=== PATIENT | male | born 1985 | race Caucasian/White ===

== ENCOUNTER 2016-05-27 23:42 | Inpatient (IN) | payer OTHER ==
--- NOTE | ~2016-05-27 | HP ---
Unit #: [id number] #: [id number] Patient: DALY ALVARADO [id number] [place] [address] [id number] I MR#: [id number] NAME: DALY ALVARADO. ROOM: 78 Age: 30 Sex: M Admission Date: 05/27/2016 : 1985 Attending Physician: Alex Winkler M.D. Admitting Physician: Alex Winkler M.D. Primary Care Physician: Primary Care Physician No HISTORY AND PHYSICAL HISTORY OF PRESENT ILLNESS Daly is a 30 year old admitted to [facility] because of his polysubstance abuse which includes benzodiazepines and pain pills. PAST MEDICAL HISTORY History of poly-illicit substance abuse. PAST SURGICAL HISTORY Nothing reported. ALLERGIES Ceclor. SOCIAL HISTORY He smokes 1 pack per day. Denies alcohol. Admits to a history of polysubstance abuse. FAMILY HISTORY Medically noncontributory. REVIEW OF SYSTEMS CONSTITUTIONAL: No fever or chills. HEENT: Denies any sore throat, ear pain or runny nose. CARDIOVASCULAR: Denies chest pain, irregular heart rhythm or palpitations. CHEST: Denies shortness of breath or cough. No hemoptysis. GASTROINTESTINAL: Denies nausea, vomiting, diarrhea or chronic constipation. ENDOCRINE: Denies history of increased thirst or urination. No recent significant weight loss or gain. GENITOURINARY: Denies dysuria, frequency, or hematuria. SKIN: Denies any rashes. HEMATOLOGIC: Denies history of increased bleeding or bruising. MUSCULOSKELETAL: Denies any hot, swollen joints. No generalized muscle pain. NEUROLOGIC: Denies problems with vision or speech. No frequent, severe headaches. No numbness, tingling or weakness in any extremities. Denies loss of bladder or bowel control. CURRENT MEDICATIONS Detox protocol. PHYSICAL EXAMINATION GENERAL: Alert, well-nourished, in no apparent distress. Unit #: [id number] #: [id number] Patient: DALY ALVARADO VITAL SIGNS: Blood pressure 110/70, heart rate 80, respirations 16, temperature 98.6. WEIGHT: 146. HEIGHT: 5 feet 9 inches. SKIN: Warm and dry without rash or lesion. HEENT: Normocephalic. TMs not viewed. Oral and nasal passages clear. Conjunctivae clear. PERRLA. EOMs intact. NECK: Supple without lymphadenopathy or thyromegaly. HEART: Regular rate and rhythm without murmur. LUNGS: Clear. ABDOMEN: Soft, nontender. : Not done. EXTREMITIES: No evidence of cyanosis, clubbing or edema. Moves all without focal deficit. NEUROLOGICAL: Grossly within normal limits. Cranial Nerves: II: Visual hubbard are intact. III, IV AND : Extraocular movements are intact. Pupils are equal, round and reactive to light. V: Facial sensation is grossly normal. VII: Facial movements and expression are normal. VIII: Auditory acuity grossly intact. IX, X: Uvula is midline. Phonation is normal. XI: Patient shrugs shoulders and turns head normally. XII: Tongue protrudes in the midline. Sensory and Motor Function: Sensory and motor sensation is grossly normal. Motor: moves all extremities well. Coordination: Gait is normal. Deep Tendon Reflexes: Intact. IMPRESSION Psychiatric admission. RECOMMENDATIONS PSYCHIATRIC: Per psychiatrist. MEDICAL: See no contraindications to participate in facility's activities. MEDICAL PROGNOSIS Good. MEDICAL CONDITION Stable. Dictated by... Heidi Prajapati P.A.-C. for Kervin Davis/crys TD: 05/28/2016 20:25 JOB #: [id number] Unit #: [id number] #: [id number] Patient: DALY ALVARADO HISTORY AND PHYSICAL Page 1 of 1 X Heidi Prajapati HISTORY AND PHYSICAL
--- NOTE | ~2016-05-27 | DS ---
Unit #: [id number] #: [id number] Patient: DALY ALVARADO [id number] [place] [address] [id number] MR#: [id number] NAME: DALY ALVARADO. ROOM: P178 Age: 30 Sex: M Admission Date: 05/27/2016 : 1985 Discharge Date: 05/29/2016 Attending Physician: Alex Winkler M.D. Primary Care Physician: Primary Care Physician No DISCHARGE SUMMARY IDENTIFYING INFORMATION The patient is a 30-year-old white male, admitted to the [facility] unit with a history of abuse of Xanax, Klonopin, and oxycodone. HOSPITAL COURSE The patient was admitted to the [facility] unit and placed on routine detoxification protocol for opioids and benzodiazepines. The patient began to demand treatment with benzodiazepines while not meeting criteria for Ativan and required a brief hold. On 05/28/2016, he was begun on Vistaril 50 mg q.6 hours p.r.n. anxiety. On 05/29/2016, this physician was informed that the patient is wish to leave the hospital. The patient was initially placed on a 72-hour hold, so that he could be evaluated by this physician prior to discharge. At that point, the patient denied suicidal or homicidal ideation and exhibited no signs or symptoms of withdrawal. A brennen discussion of the risks of untreated benzodiazepine withdrawal including the risk of seizures and were undertaken with the patient. He persisted in his wish for discharge and was not felt to meet criteria for further involuntary hospitalization. Discharge was ordered on against medical advice basis. FINAL DIAGNOSES Opioid use disorder, sedative hypnotic use disorder. DISPOSITION ON DISCHARGE No psychotropic medications are prescribed to the patient at the time of discharge. It will be to the discretion of the patient and his outpatient provider whether or not he will continue the following medications; BuSpar 15 mg b.i.d. for anxiety, Zoloft 100 mg once daily for depression, Vistaril 50 mg q.6 hours p.r.n. anxiety, and Wellbutrin SR 100 mg q.a.m. for depression. DISCHARGE INSTRUCTIONS No dietary or physical restrictions were placed upon the patient at the time of discharge. PROGNOSIS Given his lack of investment and maintenance of sobriety, his prognosis would be considered a guarded one and as noted previously his discharge is against medical advice. Dictated by... Unit #: [id number] #: [id number] Patient: DALY ALVARADO M.D. CB/barbara TD: 05/29/2016 23:01 JOB #: [id number] DISCHARGE SUMMARY Page 1 of 1 X Alex Winkler MD X DISCHARGE SUMMARY
--- NOTE | ~2016-05-27 | PA ---
Unit #: [id number] #: [id number] Patient: DALY ALVARADO [id number] [place] [address] [id number] I MR#: [id number] NAME: DALY ALVARADO. ROOM: [facility] Age: 30 Sex: M Admission Date: 05/27/2016 : 1985 Date of Assessment: 05/28/2016 Attending Physician: Alex Winkler M.D. Admitting Physician: Alex Winkler M.D. Primary Care Physician: Primary Care Physician No PSYCHIATRIC ASSESSMENT IDENTIFYING INFORMATION The patient is a 30-year-old white male admitted to the [facility] unit with a history of opioid and benzodiazepine abuse. INFORMANT(S) Patient. RELIABILITY Fair. CHIEF COMPLAINT None given. HISTORY OF PRESENT ILLNESS The patient is a 30-year-old white male last hospitalized at this facility in November 2015. At that time, related to a history of alcohol dependence. The patient reports that he is now abusing alcohol as well as illicitly obtained opioids and benzodiazepines. The patient reports that he has been followed by a psychiatrist at [facility] and claims that he has been prescribed Klonopin through the auspices of that agency. The patient reports no current suicidal or homicidal ideation. He also reports that he has been prescribed Wellbutrin. He denies history of intravenous drug use but does admit that he has been abusing benzodiazepines, opioids and alcohol. For a more complete history of present illness, please refer to previous dictated notes. PAST PSYCHIATRIC HISTORY Reviewed, no changes. FAMILY HISTORY Noncontributory. SOCIAL HISTORY The patient is presently unemployed. He states that he is supported by his girlfriend and lives in an apartment with "3 roommates." MEDICATION HISTORY 1. Klonopin. 2. Wellbutrin. ALLERGIES None reported. Unit #: [id number] #: [id number] Patient: DALY ALVARADO MENTAL STATUS EXAM At this time, reveals the patient to be well-developed, well-nourished white male appearing his stated age. He appears to be in moderate physical distress related to opiate withdrawal. During interview, he is awake, alert, oriented in all spheres. His mood is dysphoric. His affect blunted. Speech is generally relevant and coherent. There are no gross deficits in memory or cognition noted. Intelligence is judged to be in the average range based on fund of knowledge. The patient is cooperative throughout the interview. He is currently denying suicidal/homicidal ideation or psychotic features. His judgement and insight appear to be reasonably intact. ASSETS AND LIABILITIES Patient's assets to be assessed. Liabilities, lack of resources, ongoing substance use, unemployment. ADMITTING DIAGNOSES 1. Opioid use disorder. 2. Alcohol use disorder. 3. Sedative/hypnotic use disorder. 4. Dysthymic disorder. PSYCHIATRIC PLAN/TREATMENT GOALS The patient remains hospitalized for safety and stabilization. We will continue Wellbutrin, Zoloft and BuSpar but discontinue Klonopin for obvious reasons. The patient will remain on suicide precautions. DISCHARGE PLANNING ESTIMATED LENGTH OF STAY Three to five days with follow up to take place through the auspices of community mental health resources. As always, routine detoxification protocols have been initiated. Dictated by... Alex Winkler M.D. CELINE/crys TD: 05/28/2016 15:17 JOB #: [id number] PSYCHIATRIC ASSESSMENT Page 1 of 1 X Alex Winkler MD PSYCHIATRIC ASSESSMENT
[2016-05-28 09:38] LABS: BASOPHIL# 0.1 X10e3 (0-0.3); BASOPHIL% 0.7 % (0-2.5); EOSINOPHIL# 0.1 X10e3 (0-0.7); EOSINOPHIL% 1.4 % (0.0-7.0); HEMATOCRIT 44.3 % (38.0-50.0); HEMOGLOBIN 14.9 gm/dL (13.0-16.0); LYMPHOCYTE# 3.1 X10e3 (1.0-3.5); LYMPHOCYTE% 33.5 % (17.0-45.0); MEAN CORPUSCULAR HEMOGLOBIN 30.2 PG (28-34); MEAN CORPUSCULAR HGB CONC 33.6 g/dL (30-36); MEAN PLATELET VOLUME 9.1 FL (6.5-11.5); MONOCYTE# 0.6 X10e3 (0-1.0); MONOCYTE% 6.3 % (3.0-12.0); NEUTROPHIL# 5.3 X10e3 (1.5-7.1); NEUTROPHIL% 58.1 % (40-75); PLATELET COUNT 203 X10e3 (140-420); RED BLOOD COUNT 4.93 X10e (3.90-5.60); RED CELL DISTRIBUTION WIDTH 13.5 % (11.0-15.5); WHITE BLOOD COUNT 9.2 X10e3 (4.0-10.5)
[2016-05-28 09:40] LABS: DIFF IND NO
[2016-05-28 10:08] LABS: THYROID STIMULATING HORMONE 0.31 uIU/ml (0.34-5.60)
[2016-05-28 10:17] LABS: ALKALINE PHOSPHATASE 53 U/L (32-92); ALT (SGPT) 11 U/L (10-40); AST (SGOT) 17 U/L (10-42); BILIRUBIN,TOTAL 0.5 mg/dL (0.2-2.0); BLOOD UREA NITROGEN 15 mg/dL (9-23); BUN/CREATININE RATIO 16.66; CALCIUM SERUM 9.3 mg/dL (8.4-10.2); CARBON DIOXIDE 28 mmol/L (22-31); CHLORIDE 107 mmol/L (100-111); CREATININE SERUM 0.9 mg/dL (0.6-1.4); FREE THYROXIN (T4) 0.99 ng/dL (0.58-1.64); GLOM FILT RATE Estimated ABOVE60 mL/min (>60); GLUCOSE FASTING 96 mg/dL (70-110); POTASSIUM 4.1 mmol/L (3.5-5.1); PROTEIN TOTAL SERUM 6.5 g/dL (6.0-8.3); SODIUM 141 mmol/L (135-145)
[2016-05-30 09:49] LABS: URINE APPEARANCE CLEAR; URINE BILIRUBIN NEG (NEG); URINE BLOOD NEG (NEG); URINE COLOR YELLOW; URINE GLUCOSE NEG (NEG); URINE KETONE NEG (NEG); URINE LEUKOCYTE ESTERASE NEG (NEG); URINE NITRATE NEG (NEG); URINE PH 6.5 (5-8); URINE PROTEIN NEG (NEG); URINE UROBILINOGEN 0.2 MG/DL (NEG)
[2016-05-30 10:17] LABS: AMPHETAMINE NEG (NEG); BARBITURATES NEG (NEG); BENZODIAZEPINES POS (NEG); COCAINE NEG (NEG); MARIJUANA NEG (NEG); OPIATES NEG (NEG); TRICYCLIC ANTIDEPRESSANTS NEG (NEG); U METHADONE NEG (NEG)
== END 2016-05-29 15:11 | disposition left against medical advice (07) | DRG 894 ==
LOC: P1E 23:42
PROVIDERS: Specialist
PROC: HZ2ZZZZ Detoxification Services for Substance Abuse Treatment (ICD-10-PCS; principal; 2016-05-27)
DX: F11.20 Opioid dependence, uncomplicated (principal); R45.851 Suicidal ideations; F13.20 Sedative, hypnotic or anxiolytic dependence, uncomplicated; F10.20 Alcohol dependence, uncomplicated; F34.1 Dysthymic disorder; Z56.0 Unemployment, unspecified; F17.200 Nicotine dependence, unspecified, uncomplicated; F41.9 Anxiety disorder, unspecified
CPT/HCPCS: 80053; 80307; 81003; 84439; 84443; 85025; 86592